=== PATIENT | male | born 1930 | race Hispanic/Latino ===

== ENCOUNTER 2017-07-19 10:27 | Day surgery (SDC) | payer MEDICARE ==
[~2017-07-19 10:27] MED LIST: AK-Dilate ONE; IOPIDINE ONE; MYDRIACYL ONE
[2017-07-19] MEDS ORDERED: AK-Dilate OS ONE (12:05)
[2017-07-19] MEDS ORDERED: IOPIDINE OS ONE (12:05)
[2017-07-19] MEDS ORDERED: MYDRIACYL OS ONE (12:05)
[2017-07-19 17:18] VITALS: BP 110/60
== END 2017-07-19 12:44 | disposition home or self-care (01) ==
LOC: OR 10:27
PROVIDERS: ATTEND Ophthalmology
DX: H26.492 Other secondary cataract, left eye (principal); I50.9 Heart failure, unspecified; I25.2 Old myocardial infarction; J44.9 Chronic obstructive pulmonary disease, unspecified; K21.9 Gastro-esophageal reflux disease without esophagitis; M19.90 Unspecified osteoarthritis, unspecified site; G47.30 Sleep apnea, unspecified; Z88.0 Allergy status to penicillin; Z88.8 Allergy status to other drugs, medicaments and biological substances; Z95.0 Presence of cardiac pacemaker; Z95.5 Presence of coronary angioplasty implant and graft; Z99.89 Dependence on other enabling machines and devices; Z99.81 Dependence on supplemental oxygen